=== PATIENT | male | born 2000 | race Caucasian/White ===

== ENCOUNTER 2021-11-27 00:57 | Inpatient (IN) | payer OTHER ==
[~2021-11-27] VITALS: Ht 172.7 cm; Wt 104.5 kg
[2021-11-27 03:15] VITALS: BP 139/92
[2021-11-27 05:00] VITALS: BP 139/81
[2021-11-27 06:19] LABS: Basophils # (auto) 0 10 ^3/uL (0-0.2); Basophils % (auto) 0.5 % (0.0-2.0); Eosinophils # (auto) 0.1 10 ^3/uL (0-0.8); Eosinophils % (auto) 1.3 % (0.0-7.0); Hemoglobin 15.2 g/dL (13.5-17.5); Lymphocytes # (auto) 2.4 10 ^3/uL (0.4-5.4); Lymphocytes % (auto) 27.5 % (10.0-50.0); Mean Corpuscular Hgb Conc. 33.8 g/dL (32.0-36.0); Mean Corpuscular Volume 91.4 fL (80.0-100.0); Monocytes # (auto) 0.7 10 ^3/uL (0-1.3); Neutrophils # (auto) 5.5 10 ^3/uL (1.6-8.6); Neutrophils % (auto) 62.7 % (37.0-80.0); Nucleated Red Blood Cells % 0.1 %; Red Blood Cells 4.92 10^6/uL (4.5-5.90); Red Cell Distribution Width 12.8 % (11.8-14.3); White Blood Cell 8.8 10^3/uL (4.4-10.8)
[2021-11-27 06:33] LABS: INR 1.06 (0.9-1.15)
[2021-11-27 06:38] LABS: Calcium 9.7 mg/dL (8.5-10.1); Potassium 4.6 mmol/L (3.5-5.1)
[2021-11-27 06:41] LABS: BUN/Creatinine Ratio 12.1
[2021-11-27 06:53] LABS: Bilirubin, Total 0.5 mg/dL (0.2-1.0); Total Protein 7.2 g/dL (6.4-8.2)
[2021-11-27 09:00] VITALS: BP 121/71
[2021-11-27 09:31] LABS: Urine Bacteria NONE SEEN /hpf (None Seen); Urine Blood Negative /uL (Negative); Urine Specific Gravity 1.008 (1.001-1.035); Urine WBC <1 /hpf (0 - 3)
[2021-11-27 10:57] LABS: CRP High Sensitivity 0.18 mg/dL (< 0.3); Magnesium 2.1 mg/dL (1.6-2.6); Phosphorus 4.1 mg/dL (2.5-4.90)
[2021-11-27 11:26] LABS: Free T4 (Free Thyroxine) 1.26 ng/dL (0.89-1.76)
[2021-11-27 11:27] LABS: Folate (Folic Acid) 19.54 ng/mL (5.38-24)
[2021-11-27 13:00] VITALS: BP 123/71
[2021-11-27 16:28] LABS: Alcohol, Urine < 3.0 mg/dL (0-10); Amphetamine Screen, Urine NEGATIVE (NEGATIVE); Barbiturate Scree,Urine NEGATIVE (NEGATIVE); Benzodiazephine Screen, Urine NEGATIVE (NEGATIVE); Cannabinoid Screen, Urine NEGATIVE (NEGATIVE); Cocaine Screen, Urine NEGATIVE (NEGATIVE); Opiate Scree,Urine NEGATIVE (NEGATIVE); Phencyclidine Screen, Urine NEGATIVE (NEGATIVE)
[2021-11-27 17:00] VITALS: BP 128/80
[2021-11-27] MEDS ORDERED: IMMUNE GLOBULIN IV SCH (20:00)
[2021-11-27 22:00] VITALS: BP 141/79
[2021-11-28 05:00] VITALS: BP 137/69
[2021-11-28 09:00] VITALS: BP 134/69
[2021-11-28 10:06] LABS: RPR Non Reactive (Non Reactive)
[2021-11-28 12:50] VITALS: BP 137/80
[2021-11-28 16:36] VITALS: BP 135/70
[2021-11-28 22:00] VITALS: BP 134/76
[2021-11-29 05:00] VITALS: BP 137/88
[2021-11-29 09:15] VITALS: BP 128/80
[2021-11-29 12:20] VITALS: BP 135/81
[2021-11-29 17:45] VITALS: BP 147/88
[2021-11-29] MEDS: ACETAMINOPHEN 325 MG TAB PO PRN (17:50)
[2021-11-29 22:00] VITALS: BP 138/84
[2021-11-30] VITALS (8 sets, daily range): BP systolic 124–138; BP diastolic 63–86
[2021-11-30] MEDS: ACETAMINOPHEN 325 MG TAB PO PRN ×2 (04:03→18:02)
[2021-11-30] MEDS ORDERED: ONDANSETRON HCL 4 MG/2 ML VIAL IV PRN ×2 (13:15→13:30)
[2021-11-30] MEDS ORDERED: IOHEXOL 300 MG/ML 100ML BOTTLE IJ ONE (13:59)
[2021-11-30] MEDS ORDERED: LIDOCAINE 2%HCL (LOCAL ANESTH.) INJ 20ML MDV ONE (14:05)
[2021-11-30 15:26] LABS: Protein, CSF 74.5 mg/dL (15-45)
[2021-11-30 16:03] LABS: CSF White Blood Cells 75 CUMM (0-5)
[2021-12-01] MEDS: ACETAMINOPHEN 325 MG TAB PO PRN ×2 (00:41→21:51)
[2021-12-01 05:05] VITALS: BP 143/72
[2021-12-01 08:00] VITALS: BP 132/81
[2021-12-01] MEDS ORDERED: GADOTERATE MEG 7.5 MMOL/15ml INJ (0.5MMOL/ml) IV ONE (09:51)
[2021-12-01] MEDS ORDERED: ACYCLOVIR 10MG/KG Q8HR PER RX 0 ML IV SCH (11:30)
[2021-12-01] MEDS ORDERED: ACYCLOVIR 400 MG TAB PO SCH (14:00)
[2021-12-01] MEDS ORDERED: ACYCLOVIR SOD IV SCH (14:00)
[2021-12-01] MEDS ORDERED: SODIUM CHL 0.9% IV SCH (14:00)
[2021-12-01] MEDS: VALACYCLOVIR HCL 500 MG TAB PO SCH ×2 (16:41→21:52)
[2021-12-01 22:00] VITALS: BP 135/81
[2021-12-01] MEDS ORDERED: PATIENTS OWN MEDICATION PO SCH (22:00)
[2021-12-02 05:00] VITALS: BP 131/69
[2021-12-02] MEDS: VALACYCLOVIR HCL 500 MG TAB PO SCH ×3 (06:20→21:14)
[2021-12-02 06:50] LABS: Basophils # (auto) 0.1 10 ^3/uL (0-0.2); Basophils % (auto) 0.9 % (0.0-2.0); Eosinophils # (auto) 0.1 10 ^3/uL (0-0.8); Eosinophils % (auto) 2.1 % (0.0-7.0); Hematocrit 44.4 % (41.0-53.0); Hemoglobin 15.7 g/dL (13.5-17.5); Lymphocytes # (auto) 1.8 10 ^3/uL (0.4-5.4); Lymphocytes % (auto) 27.7 % (10.0-50.0); Mean Corpuscular Hemoglobin 32.1 pg (28.0-32.0); Mean Corpuscular Hgb Conc. 35.4 g/dL (32.0-36.0); Mean Corpuscular Volume 90.7 fL (80.0-100.0); Monocytes # (auto) 0.8 10 ^3/uL (0-1.3); Monocytes % (auto) 12.1 % (0.0-12.0); Neutrophils # (auto) 3.8 10 ^3/uL (1.6-8.6); Neutrophils % (auto) 57.2 % (37.0-80.0); Nucleated Red Blood Cells % 0.1 %; Red Cell Distribution Width 12.9 % (11.8-14.3); White Blood Cell 6.6 10^3/uL (4.4-10.8)
[2021-12-02 06:57] LABS: Potassium 4.5 mmol/L (3.5-5.1)
[2021-12-02 07:07] LABS: Albumin 3.7 g/dL (3.4-5.0); BUN/Creatinine Ratio 13.2; Bilirubin, Total 0.6 mg/dL (0.2-1.0); Calcium 9.3 mg/dL (8.5-10.1); Total Protein 10.7 g/dL (6.4-8.2)
[2021-12-02 08:06] LABS: Immunoglobulin G, Serum 3908 mg/dL (603-1613)
[2021-12-02 08:06] LABS: Immunoglobulin G, Serum 3175 mg/dL (603-1613); Serum Albumin 4.5 g/dL (4.1-5.2)
[2021-12-02 09:00] VITALS: BP 120/83
[2021-12-02] MEDS: ACETAMINOPHEN 325 MG TAB PO PRN ×2 (09:33→16:22)
[2021-12-02 13:00] VITALS: BP 134/89
[2021-12-02 17:00] VITALS: BP 115/57
[2021-12-02 22:00] VITALS: BP 119/75
[2021-12-03] MEDS: VALACYCLOVIR HCL 500 MG TAB PO SCH ×3 (05:28→21:56)
[2021-12-03 05:30] VITALS: BP 149/75
[2021-12-03 09:33] VITALS: BP 156/92
[2021-12-03 14:28] VITALS: BP 137/74
[2021-12-03 16:46] VITALS: BP 129/65
[2021-12-03 22:00] VITALS: BP 129/94
[2021-12-04 05:00] VITALS: BP 120/75
[2021-12-04] MEDS: VALACYCLOVIR HCL 500 MG TAB PO SCH (05:42)
[2021-12-04 09:00] VITALS: BP 118/67
[2021-12-04 10:07] LABS: Albumin, CSF 36 mg/dL (10-45); CSF IgG Index 0.3 (0.0-0.7); CSF/Serum Alb. Index 8 (0-8); IgG, Quant, CSF 7.5 mg/dL (0.0-10.3); IgG, Syn Rate,CSF -30.5 mg/day (-9.9 TO +3.3); IgG/Alb Ratio, CSF 0.21 (0.00-0.25)
[2021-12-04 10:52] VITALS: BP 118/67
[2021-12-04] MEDS ORDERED: ERGOCALCIFEROL 50,000 UNIT(1.25MG) CAP PO SCH (12:15)
[2021-12-04 12:58] VITALS: BP 138/91
== END 2021-12-04 11:50 | disposition home or self-care (01) | DRG 97 ==
LOC: WEST WING 02:20 → TELE-WESTW 11-28 20:26
PROVIDERS: ADMIT Internal Medicine; ATTEND Internal Medicine
PROC: 00JU3ZZ Inspection of Spinal Canal, Percutaneous Approach (ICD-10-PCS; 2021-11-27)
PROC: 009U3ZX Drainage of Spinal Canal, Percutaneous Approach, Diagnostic (ICD-10-PCS; principal; 2021-11-30)
PROC: B01B1ZZ Fluoroscopy of Spinal Cord using Low Osmolar Contrast (ICD-10-PCS; 2021-11-30)
DX: G04.90 Encephalitis and encephalomyelitis, unspecified (principal); B00.3 Herpesviral meningitis; G61.0 Guillain-Barre syndrome; G62.9 Polyneuropathy, unspecified; E66.9 Obesity, unspecified; R13.10 Dysphagia, unspecified; H53.2 Diplopia; R20.2 Paresthesia of skin; R20.0 Anesthesia of skin; Z20.822 Contact with and (suspected) exposure to COVID-19; R42 Dizziness and giddiness; R47.1 Dysarthria and anarthria; E55.9 Vitamin D deficiency, unspecified; R26.9 Unspecified abnormalities of gait and mobility; R49.0 Dysphonia; Z86.16 Personal history of COVID-19; Z68.35 Body mass index [BMI] 35.0-35.9, adult; Z82.49 Family history of ischemic heart disease and other diseases of the circulatory system
CPT/HCPCS: 36415; 62272; 70553; 71045; 80053; 80307; 81001; 82042; 82085; 82164; 82306; 82390; 82607; 82746; 82784; 82945; 83735; 84100; 84157; 84439; 84443; 85025; 85610; 85652; 85730; 86038; 86141; 86225; 86592; 86644; 86645; 86703; 87070; 87205; 87529; 87804; 89051; 93005; 94010; 97110; 97116; 97530; G0378; J1561